=== PATIENT | male | born 1955 | race Caucasian/White ===

== ENCOUNTER 2016-06-20 10:29 | Outpatient (CLI) | payer OTHER ==
[2016-06-20] MEDS ORDERED: GADOBUTROL 7.5 MMOL/7.5 ML VIAL IVP ONE (11:28)
== END 2016-06-20 10:30 | disposition home or self-care (01) ==
DX: M51.17 Intervertebral disc disorders with radiculopathy, lumbosacral region (principal); M54.5 Low back pain
CPT/HCPCS: 72158; A9585

== ENCOUNTER 2018-04-04 11:01 | Outpatient (CLI) | payer OTHER ==
--- NOTE | 2018-04-07 10:07 | XRAY Report ---
Reason: BACK PAIN Procedure Date: 04/04/2018 Accession Number: [id number] / [id number] Procedure: XR - Lumbar Spine w/Flex/Ext CPT Code: FULL RESULT: EXAM: LUMBOSACRAL SPINE RADIOGRAPHY EXAM DATE: 04/04/2018 11:45 AM. CLINICAL HISTORY: BACK PAIN. COMPARISONS: Lumbar MRI 06/20/2016. TECHNIQUE: AP, lateral neutral, flexion, and extension views. FINDINGS: Alignment: No spondylolisthesis or scoliosis. No abnormal motion with flexion or extension. Bones: Five [id number] lumbar vertebral bodies are present. No fractures or bone lesions. Disks: There is mild narrowing of the L4-L5 disk space. Facets: No degenerative changes. Soft Tissues: The visualized bowel gas pattern is normal. IMPRESSION: Mild lumbar spondylosis. No appreciable change given differences in technique. RADIA
== END 2018-04-04 11:02 | disposition home or self-care (01) ==
LOC: DI 11:01
PROVIDERS: ATTEND Nurse Practitioner Family
DX: M47.9 Spondylosis, unspecified (principal)
CPT/HCPCS: 72114

== ENCOUNTER 2019-08-19 19:39 | Emergency (ER) | payer MEDICARE, OTHER ==
[2019-08-19 19:50] VITALS: BP 160/97
[2019-08-19] MEDS ORDERED: predniSONE 20 MG TABLET PO STA (20:02)
[2019-08-19] MEDS ORDERED: valACYclovir 500 MG TABLET PO STA (20:02)
--- NOTE | 2019-08-19 20:04 | ED Physician Documentation ---
History of Present Illness - Stated complaint Stated Complaint: LT SIDE CHEST PAIN - INJURY - Chief complaint Chief Complaint: General - History obtained from History obtained from: Patient (About 3 days has had a sharp and burning chest pain in the left anterior chest. It is worse with deep breathing and certain motions. It is minimally present at rest. He denies shortness of breath, calf pain, pedal edema. It is helpful for him to take a hot shower.) Review of Systems Constitutional: denies: Fever, Chills Throat: denies: Dental pain / toothache, Sore throat Cardiac: denies: Chest pain / pressure, Palpitations Respiratory: denies: Dyspnea, Cough PD PAST MEDICAL HISTORY - Present Medications Home Medications: Ambulatory Orders Medication Instructions Recorded Confirmed Valacyclovir HCl [Valtrex] 1,000 mg PO TID #30 tablet 08/19/19 predniSONE [Deltasone] 20 mg PO [id number] #21 tab 08/19/19 - Allergies Allergies/Adverse Reactions: Allergies Allergy/AdvReac Type Severity Reaction Status Date / Time No Known Drug Allergies Allergy Verified 08/19/19 19:54 PD ED PE NORMAL - Vitals Vital signs reviewed: Yes - General General: Alert and oriented X 3, No acute distress - HEENT HEENT: PERRL, EOMI - Neck Neck: Supple, no meningeal sign, No bony TTP - Cardiac Cardiac: RRR, No murmur, Other (He has herpes zoster in the affected area on the upper anterior thorax) - Respiratory Respiratory: Clear bilaterally - Abdomen Abdomen: Non tender - Extremities Extremities: No edema, No calf tenderness / cord - Neuro Neuro: Alert and oriented X 3, Normal speech Results - Vitals Vitals: Vital Signs - 24 hr 08/19/19 19:47 Temperature 36.9 C Heart Rate 88 Respiratory 16 Rate Blood Pressure 160/97 H O2 Saturation 96 Oxygen O2 Source Room air PD MEDICAL DECISION MAKING - ED course ED course: 63-year-old gentleman with chest pain but it is clearly due to herpes zoster on examination which is treated with Valtrex and a prednisone taper. Departure - Departure Disposition: 01 Home, Self Care Clinical Impression: Shingles Qualifiers: Herpes zoster complications: without complications Qualified Code(s): B02.9 - Zoster without complications Condition: Good Record reviewed to determine appropriate education?: Yes Instructions: ED Shingles Prescriptions: predniSONE [Deltasone] 20 mg PO [id number] #21 tab Valacyclovir HCl [Valtrex] 1,000 mg PO TID #30 tablet Comments: Return for new or worsening symptoms. Follow-up with your doctor midweek for recheck. Stay away from the high risk groups as discussed, specifically people with poor immune system, babies, women, Unimmunized people.
== END 2019-08-19 20:18 | disposition home or self-care (01) ==
LOC: ED 19:39
DX: B02.9 Zoster without complications (principal)
CPT/HCPCS: 99282; 99284; A9270; J7512

== ENCOUNTER 2021-07-22 08:00 | Outpatient (CLI) | payer MEDICARE ==
--- NOTE | 2021-07-22 09:40 | XRAY Report ---
PROCEDURE: Chest 2 View X-Ray INDICATIONS: Chest pain TECHNIQUE: 2 view(s) of the chest. COMPARISON: None. FINDINGS: Surgical changes and devices: None. Lungs and pleura: No pleural effusions or pneumothorax. Lungs are clear. Mediastinum: Mediastinal contours are normal. Heart size is normal. Bones and chest wall: No suspicious bony abnormalities. Soft tissues appear unremarkable. IMPRESSION: Normal Reviewed by: Luciano Vital MD on 07/22/2021 9:39 AM [facility] Approved by: Luciano Vital MD on 07/22/2021 9:39 AM [facility] Station ID: [id number]
[2021-07-22 15:03] LABS: ALBUMIN 3.8 g/dL (3.2-5.5); ALBUMIN/GLOBULIN RATIO 1.3 (1.0-2.2); BILIRUBIN,TOTAL 0.7 mg/dL (0.2-1.0); CALCIUM 9.1 mg/dL (8.5-10.3); CREATININE 0.9 mg/dL (0.6-1.2); POTASSIUM 4.4 mmol/L (3.5-5.0); TOTAL PROTEIN 6.7 g/dL (6.7-8.2)
[2021-07-22 15:09] LABS: THYROID STIMULATING HORMONE 1.71 uIU/mL (0.34-5.60)
[2021-07-22 15:11] LABS: BASOPHILS % (AUTO) 0.4 %; EOSINOPHILS # (AUTO) 0.1 10^3/uL (0.0-0.7); EOSINOPHILS % (AUTO) 1.2 %; HCT - HEMATOCRIT 37.8 % (42.0-52.0); HGB - HEMOGLOBIN 11.8 g/dL (14.0-18.0); LYMPHOCYTES # (AUTO) 1.7 10^3/uL (1.5-3.5); MEAN CORPUSCULAR HEMOGLOBIN 25.8 pg (27.0-31.0); MEAN CORPUSCULAR HGB CONC 31.2 g/dL (32.0-36.0); MEAN CORPUSCULAR VOLUME 82.5 fL (80.0-94.0); MEAN PLATELET VOLUME 9.2 fL (7.4-11.4); MONOCYTES # (AUTO) 0.4 10^3/uL (0.0-1.0); MONOCYTES % (AUTO) 6.1 %; NEUTROPHILS # (AUTO) 4.9 10^3/uL (1.5-6.6); PLT - PLATELET COUNT 375 10^3/uL (130-450); RED BLOOD COUNT 4.58 10^6/uL (4.70-6.10); RED CELL DISTRIBUTION WIDTH 15.9 % (12.0-15.0); WHITE BLOOD COUNT 7.2 x10^3/uL (4.8-10.8)
[2021-07-22 15:29] LABS: CREATINE KINASE MB 3.6 ng/mL (0.6-6.3)
== END 2021-07-22 23:59 | disposition home or self-care (01) ==
LOC: DI.S 08:00
PROVIDERS: ATTEND Registered Nurse
DX: R07.9 Chest pain, unspecified (principal)
CPT/HCPCS: 36415; 80053; 82553; 84443; 84484; 85025

== ENCOUNTER 2021-07-22 12:24 | Emergency (ER) | payer MEDICARE ==
[2021-07-22 13:06] LABS: BASOPHILS % (AUTO) 0.4 %; EOSINOPHILS % (AUTO) 0.5 %; HCT - HEMATOCRIT 39.9 % (42.0-52.0); HGB - HEMOGLOBIN 12.7 g/dL (14.0-18.0); LYMPHOCYTES # (AUTO) 2.4 10^3/uL (1.5-3.5); MEAN CORPUSCULAR HEMOGLOBIN 25.9 pg (27.0-31.0); MEAN CORPUSCULAR HGB CONC 31.8 g/dL (32.0-36.0); MEAN CORPUSCULAR VOLUME 81.3 fL (80.0-94.0); MEAN PLATELET VOLUME 8.5 fL (7.4-11.4); MONOCYTES # (AUTO) 0.6 10^3/uL (0.0-1.0); MONOCYTES % (AUTO) 7.3 %; NEUTROPHILS # (AUTO) 4.9 10^3/uL (1.5-6.6); NEUTROPHILS % (AUTO) 61.5 %; PLT - PLATELET COUNT 392 10^3/uL (130-450); RED BLOOD COUNT 4.91 10^6/uL (4.70-6.10); RED CELL DISTRIBUTION WIDTH 15.7 % (12.0-15.0)
[2021-07-22] MEDS ORDERED: MAG HYDROX/AL HYDROX/SIMETH 30 ML UDC PO STA (13:17)
[2021-07-22] MEDS ORDERED: SUCRALFATE 1 GM/10 ML UDC PO STA (13:17)
--- NOTE | 2021-07-22 13:18 | XRAY Report ---
PROCEDURE: Chest 1 View X-Ray INDICATIONS: Chest Pain TECHNIQUE: One view of the chest was acquired. COMPARISON: July 22, 2021 FINDINGS: SUPPORT DEVICES: None. LUNGS/PLEURA: No focal consolidation, pleural effusion or space-occupying pneumothorax. MEDIASTINUM: The cardiomediastinal silhouette is within normal limits. BONES/SOFT TISSUES: No acute abnormality. IMPRESSION: 1.No acute cardiopulmonary abnormality. Reviewed by: Kain Dalal MD on 07/22/2021 1:16 PM [facility] Approved by: Kain Dalal MD on 07/22/2021 1:16 PM [facility] Station ID: [id number]
--- NOTE | 2021-07-22 13:22 | ED Physician Documentation ---
PD HPI CHEST PAIN - Stated complaint Stated Complaint: CHEST PX - Chief complaint Chief Complaint: Cardiac - History obtained from History obtained from: Patient - History of Present Illness Timing - onset: Today Timing - onset during: Sleep Timing - duration: Hours (6 hours, constant) Pain level max: 7 Pain level now: 4 Quality: Indigestion, Other (burning) Location: Other (upper chest) Radiation: Other (non-radiating) Improved by: Nothing Worsened by: No: Exertion, Inspiration, Eating, Movement, Palpation, Position Associated symptoms: No: Shortness of air, Diaphoresis, Nausea, Vomiting, Feeling faint / dizzy, General Weakness, Palpitations, Cough Similar symptoms before: Has not had sx before - Additional information Additional information: took 324mg ASA this morning. Review of Systems Constitutional: denies: Fever, Chills PD PAST MEDICAL HISTORY - Past Medical History Past Medical History: Yes Cardiovascular: Hypertension Respiratory: None Neuro: None Endocrine/Autoimmune: None GI: GERD : None HEENT: None Psych: None Musculoskeletal: Osteoarthritis, Chronic back pain Derm: Other - Past Surgical History Past Surgical History: No Ortho: Spine surgery - Present Medications Home Medications: Ambulatory Orders Medication Instructions Recorded Confirmed Cholecalciferol [Vitamin D3] 50 mcg PO DAILY 07/22/21 07/22/21 Ibuprofen [Motrin] 1 tablet PO Q8H PRN 07/22/21 07/22/21 Omeprazole Magnesium 20 mg PO DAILY 07/22/21 07/22/21 Tumeric/Ging/[place]/Oreg/Capryl 1 each PO DAILY 07/22/21 07/22/21 [Candicidal Capsule] lisinopriL [Zestril] 5 mg PO DAILY 07/22/21 07/22/21 - Allergies Allergies/Adverse Reactions: Allergies Allergy/AdvReac Type Severity Reaction Status Date / Time No Known Drug Allergies Allergy Verified 07/22/21 12:37 - Social History Does the pt smoke?: No Smoking Status: Former smoker Does the pt drink ETOH?: No Does the pt have substance abuse?: No - Immunizations Immunizations are current?: Yes Immunizations: No immun PD ED PE NORMAL - Vitals Vital signs reviewed: Yes - General General: Alert and oriented X 3, No acute distress, Well developed/nourished - HEENT HEENT: PERRL, Moist mucous membranes - Neck Neck: Supple, no meningeal sign - Cardiac Cardiac: RRR, No murmur, Strong equal pulses - Respiratory Respiratory: No respiratory distress, Clear bilaterally - Abdomen Abdomen: Soft, Non tender, Non distended - Derm Derm: Warm and dry - Extremities Extremities: No edema, No calf tenderness / cord - Neuro Neuro: Alert and oriented X 3 - Psych Psych: Normal mood, Normal affect Results - Vitals Vitals: Vital Signs - 24 hr 07/22/21 07/22/21 07/22/21 12:37 13:39 14:30 Temperature 36.2 C L Heart Rate 62 67 61 Respiratory 18 16 14 Rate Blood Pressure 178/99 H 153/93 H 160/101 H O2 Saturation 98 99 97 07/22/21 07/22/21 07/22/21 16:17 18:00 20:00 Temperature Heart Rate 54 L 59 L 69 Respiratory 14 15 18 Rate Blood Pressure 133/89 H 145/93 H 152/94 H O2 Saturation 98 98 98 07/22/21 07/22/21 20:42 21:01 Temperature Heart Rate 72 78 Respiratory 18 13 Rate Blood Pressure 146/98 H 138/97 H O2 Saturation 99 96 Oxygen O2 Source Room air - EKG (time done) 1238 Rate: Rate (enter#) (57) Rhythm: NSR [place]: Normal Intervals: Normal [place] QRS: Normal Ischemia: ST depression (III, aVF) 1447 Rate: Rate (enter#) (65) Rhythm: NSR [place]: Normal Intervals: Normal [place] QRS: Normal Ischemia: ST depression (III, aVF) 2027 Rate: Rate (enter#) (67) Rhythm: NSR [place]: Normal Intervals: Normal [place] QRS: Normal Ischemia: T wave inversion (v2-5, I, aVL) 8 Rate: Rate (enter#) (77) Rhythm: NSR [place]: Normal QRS: Normal Ischemia: ST elevation c/w ischemia (I, aVL, V2-5), ST depression (III,aVL) - Labs Labs: Laboratory Tests 07/22/21 07/22/21 07/22/21 12:59 12:59 12:59 WBC 8.0 RBC 4.91 Hgb 12.7 L Hct 39.9 L MCV 81.3 MCH 25.9 L MCHC 31.8 L RDW 15.7 H Plt Count 392 MPV 8.5 Neut # (Auto) 4.9 Lymph # (Auto) 2.4 [place] # (Auto) 0.6 Eos # (Auto) 0.0 Baso # (Auto) 0.0 Absolute Nucleated RBC 0.00 Nucleated RBC % 0.0 PT INR APTT Sodium 133 L Potassium 4.3 Chloride 99 L Carbon Dioxide 24 Anion Gap 10.0 BUN 17 Creatinine 0.9 Estimated GFR (MDRD) 85 L Glucose 127 H Calcium 9.3 Total Bilirubin 0.5 AST 41 ALT 42 Alkaline Phosphatase 73 Troponin I High Sens 915.7 H* Total Protein 7.5 Albumin 4.2 Globulin 3.3 Albumin/Globulin Ratio 1.3 Lipase 60 H Nasal Adenovirus (PCR) Nasal B. parapertussis DNA (PCR) Nasal Coronavir 229E PCR Nasal Coronavir HKU1 PCR Nasal Coronavir NL63 PCR Nasal Coronavir OC43 PCR Nasal Enterovir/Rhinovir PCR Nasal Influenza B PCR Nasal Influenza A PCR Nasal Parainfluen 1 PCR Nasal Parainfluen 2 PCR Nasal Parainfluen 3 PCR Nasal Parainfluen 4 PCR Nasal RSV (PCR) Nasal B.pertussis DNA PCR Nasal C.pneumoniae (PCR) Reg[place] Human Metapneumo PCR Nasal M.pneumoniae (PCR) Nasal SARS-CoV-2 (PCR) 07/22/21 07/22/21 07/22/21 13:58 14:21 19:22 WBC RBC Hgb Hct MCV MCH MCHC RDW Plt Count MPV Neut # (Auto) Lymph # (Auto) [place] # (Auto) Eos # (Auto) Baso # (Auto) Absolute Nucleated RBC Nucleated RBC % PT 12.3 INR 1.1 APTT > 240.0 H* 53.0 H Sodium Potassium Chloride Carbon Dioxide Anion Gap BUN Creatinine Estimated GFR (MDRD) Glucose Calcium Total Bilirubin AST ALT Alkaline Phosphatase Troponin I High Sens Total Protein Albumin Globulin Albumin/Globulin Ratio Lipase Nasal Adenovirus (PCR) NOT DETECTED Nasal B. parapertussis DNA (PCR) NOT DETECTED Nasal Coronavir 229E PCR NOT DETECTED Nasal Coronavir HKU1 PCR NOT DETECTED Nasal Coronavir NL63 PCR NOT DETECTED Nasal Coronavir OC43 PCR NOT DETECTED Nasal Enterovir/Rhinovir PCR NOT DETECTED Nasal Influenza B PCR NOT DETECTED Nasal Influenza A PCR NOT DETECTED Nasal Parainfluen 1 PCR NOT DETECTED Nasal Parainfluen 2 PCR NOT DETECTED Nasal Parainfluen 3 PCR NOT DETECTED Nasal Parainfluen 4 PCR NOT DETECTED Nasal RSV (PCR) NOT DETECTED Nasal B.pertussis DNA PCR NOT DETECTED Nasal C.pneumoniae (PCR) NOT DETECTED Reginald Human Metapneumo PCR NOT DETECTED Nasal M.pneumoniae (PCR) NOT DETECTED Nasal SARS-CoV-2 (PCR) NOT DETECTED 07/22/21 19:22 WBC RBC Hgb Hct MCV MCH MCHC RDW Plt Count MPV Neut # (Auto) Lymph # (Auto) [place] # (Auto) Eos # (Auto) Baso # (Auto) Absolute Nucleated RBC Nucleated RBC % PT INR APTT Sodium Potassium Chloride Carbon Dioxide Anion Gap BUN Creatinine Estimated GFR (MDRD) Glucose Calcium Total Bilirubin AST ALT Alkaline Phosphatase Troponin I High Sens 5345.2 H* Total Protein Albumin Globulin Albumin/Globulin Ratio Lipase Nasal Adenovirus (PCR) Nasal B. parapertussis DNA (PCR) Nasal Coronavir 229E PCR Nasal Coronavir HKU1 PCR Nasal Coronavir NL63 PCR Nasal Coronavir OC43 PCR Nasal Enterovir/Rhinovir PCR Nasal Influenza B PCR Nasal Influenza A PCR Nasal Parainfluen 1 PCR Nasal Parainfluen 2 PCR Nasal Parainfluen 3 PCR Nasal Parainfluen 4 PCR Nasal RSV (PCR) Nasal B.pertussis DNA PCR Nasal C.pneumoniae (PCR) Reg[place]d Human Metapneumo PCR Nasal M.pneumoniae (PCR) Nasal SARS-CoV-2 (PCR) - Rads (name of study) cxr Radiology: Final report received, EMP read contemporaneously, See rad report (no acute disease) PD MEDICAL DECISION MAKING - ED course Complexity details: reviewed results, re-evaluated patient, considered differential, d/w patient, d/w solar sales consultant ED course: Discussed the case with Dr. Mccullough at the [facility] around 2:30 in the afternoon. Patient is pain-free. Asymptomatic. On a heparin drip. Given oral metoprolol. Took aspirin prior to arrival. There are no beds available at [facility] or [facility]. [facility], Dr. Mccullough accepts in transfer. [facility] called back a few hours later and states that the bed will likely not be available till tomorrow. Patient is still hemodynamically stable and pain- free. At approximately 8 PM, the patient developed recurrent chest pain. EKG performed and does show dynamic changes though no ST elevation [place] at that time. Recontacted [facility], refax the EKG and attempted talk to the massage therapy instructor. No callback received. At approximately 2119, the patient had an episode of torsades. He was electrically cardioverted x1. His rhythm normal ized. Magnesium given. Repeat EKG now does show a STEMI. Plavix was given. Heparin drip continued. Discussed the case with Dr. Weeks at [facility]. He graciously accepts in transfer. Patient will travel via [employer]. Patient is currently hemodynamically stable and currently pain- free. He states that he felt like there was an elephant on his chest just prior to the torsades. COBRA forms completed. The cardioversion with the torsades was performed by my partner, Dr. Castro as she was at the room at the time of the event. I was in another patient's room, the patient had stabilized when I was notified of the event. Departure - Departure Disposition: 02 Transfer Acute Care Hosp Clinical Impression: NSTEMI (non-ST elevated myocardial infarction), Torsades de pointes STEMI (ST elevation myocardial infarction) Qualifiers: Involved coronary artery: unspecified coronary artery Qualified Code(s): I21.3 - ST elevation (STEMI) myocardial infarction of unspecified site Condition: Stable
[2021-07-22] MEDS ORDERED: MORPHINE 2 MG/ML CARPUJECT IVP STA ×2 (13:53→19:13)
[2021-07-22] MEDS ORDERED: METOPROLOL TARTRATE 50 MG TABLET PO STA (13:53)
[2021-07-22] MEDS ORDERED: HEPARIN 25000UNITS/500ML (D5W) 25,000 UNIT/500 ML BAG IV SCH (14:00)
[2021-07-22 14:01] LABS: ALBUMIN 4.2 g/dL (3.2-5.5); ALBUMIN/GLOBULIN RATIO 1.3 (1.0-2.2); BILIRUBIN,TOTAL 0.5 mg/dL (0.2-1.0); CREATININE 0.9 mg/dL (0.6-1.2); TOTAL PROTEIN 7.5 g/dL (6.7-8.2)
[2021-07-22 14:02] LABS: CALCIUM 9.3 mg/dL (8.5-10.3); POTASSIUM 4.3 mmol/L (3.5-5.0)
[2021-07-22 14:32] LABS: INR 1.1 (0.8-1.2); PT - PROTHROMBIN TIME 12.3 secs (9.9-12.6)
[2021-07-22 14:54] LABS: PARTIAL THROMBOPLASTIN TIME > 240.0 secs (24.9-33.3)
[2021-07-22 15:49] LABS: B. PARAPERTUSSIS- RESP PCR PAN NOT DETECTED; B. PERTUSSIS- RESP PCR PANEL NOT DETECTED; C. PNEUMONIAE- RESP PCR PANEL NOT DETECTED; CORONAVIRUS 229E-RESP PCR NOT DETECTED; CORONAVIRUS HKU1-RESP PCR NOT DETECTED; CORONAVIRUS NL63-RESP PCR NOT DETECTED; CORONAVIRUS OC43-RESP PCR NOT DETECTED; HUMAN METAPNEUMOVIRUS NOT DETECTED; INFLUENZA A- RESP PCR PANEL NOT DETECTED; INFLUENZA B - RESP PCR PANEL NOT DETECTED; M. PNEUMONIAE- RESP PCR PANEL NOT DETECTED; PARAINFLUENZA VIRUS 1 NOT DETECTED; PARAINFLUENZA VIRUS 2 NOT DETECTED; PARAINFLUENZA VIRUS 3 NOT DETECTED; PARAINFLUENZA VIRUS 4 NOT DETECTED; RHINOVIRUS/ENTEROVIRUS NOT DETECTED; RSV- RESP PCR PANEL NOT DETECTED; SARS-CoV-2 -RESP PCR PANEL NOT DETECTED
[2021-07-22] MEDS ORDERED: NITROGLYCERIN SL 0.4 MG TABLET SL STA (20:51)
[2021-07-22 21:02] VITALS: BP 138/97
[2021-07-22] MEDS ORDERED: CLOPIDOGREL 300 MG TABLET PO STA (21:33)
[2021-07-22] MEDS ORDERED: MAGNESIUM SULFATE 2 GRAM 2 GM/50 ML BAG IV ONE (21:34)
== END 2021-07-22 22:11 | disposition short-term general hospital (02) ==
LOC: ED 12:24
DX: I21.4 Non-ST elevation (NSTEMI) myocardial infarction (principal); I47.2 Ventricular tachycardia; I10 Essential (primary) hypertension; Z87.891 Personal history of nicotine dependence
CPT/HCPCS: 36415; 71045; 80053; 83690; 84484; 85025; 85610; 85730; 87631; 93005; 96365; 96366; 96375; 96376; 99283; 99285; A9270; 0202U

== ENCOUNTER 2023-01-30 08:00 | Outpatient (CLI) | payer MEDICARE ==
--- NOTE | 2023-01-30 13:03 | XRAY Report ---
PROCEDURE: Chest 2 View X-Ray INDICATIONS: PERSISTENT COUGH AFTER VIRAL RESPIRATORY INFECTION TECHNIQUE: 2 views of the chest were acquired. COMPARISON: None. FINDINGS: Surgical changes and devices: None. Lungs and pleura: No pleural effusions or pneumothorax. Lungs are clear. Mediastinum: Mediastinal contours appear normal. Heart size is normal. Dense coronary artery vasc ular calcification present. Atherosclerotic vascular calcification noted in the aortic arch. Bones and chest wall: No suspicious bony lesions. Overlying soft tissues appear unremarkable. IMPRESSION: No acute cardiopulmonary process. Reviewed by: Adrian Glass MD on 01/30/2023 12:02 PM [facility] Approved by: Adrian Glass MD on 01/30/2023 12:02 PM [facility] Station ID: [id number]
== END 2023-01-30 23:59 | disposition home or self-care (01) ==
LOC: DI.S 08:00
PROVIDERS: ATTEND Physician Assistant Medical
DX: R05.3 Chronic cough (principal)

== ENCOUNTER 2024-02-01 07:55 | Outpatient (CLI) | payer MEDICARE ==
--- NOTE | 2024-02-01 13:03 | CT Report ---
PROCEDURE: Lung Cancer Screen INDICATIONS: SCREENING FOR LUNG CA TECHNIQUE: A CT scan of the chest was performed. Intravenous contrast media was not administered. Images were re corded and evaluated at appropriate window settings. Reformats: axial MIP of the chest, coronal and s agittal. For radiation dose reduction, the following was used: automated exposure control, adjustment of mA and/or kV according to patient size. COMPARISON: None. FINDINGS: Image quality: Excellent. Prior cancer history: Unsure. Lungs and pleura: No pleural effusions. No pneumothorax. No suspicious pulmonary nodules which requi re follow up. 2 mm calcific granuloma in the left lower lobe. Mediastinum: Heart size is normal. No pericardial effusion. No large vessel abnormality. No mediastin al adenopathy by size criteria. Three vessel coronary artery calcifications. Chest wall and lower neck: Thyroid is unremarkable. No axillary or supraclavicular adenopathy by size . Bones: No aggressive osseous abnormality. Upper Abdomen: Unremarkable. IMPRESSION: Lung RAD: 1 - Negative. Recommendation: Continue annual screening in 12 Months with LDCT Non-Lung Significant Findings: Coronary Arterial Calcification - Moderate or Severe. Consider cardiol ogy referral. Reviewed by: Erik Zapata MD on 02/01/2024 1:02 PM PDT Approved by: Erik Zapata MD on 02/01/2024 1:02 PM PDT Station ID: [id number]
--- NOTE | 2024-02-01 15:50 | Ultrasound Report ---
PROCEDURE: Aorta Screening INDICATIONS: AAA SCREENING TECHNIQUE: Real time scanning was performed of the aorta and iliac arteries, with image documentatio n. COMPARISON: None. FINDINGS: Aorta: Proximal aortic diameter measures 2.5 x 2.9 cm. Mid-aorta measures 2.0 x 1.9 cm. Distal aor tic diameter is 1.4 x 1.5 cm. Iliac arteries: Right common iliac artery measures 1.0 x 1.0 cm. Left common iliac artery measures 1.0 x 1.0 cm. IMPRESSION: Unremarkable abdominal aortic ultrasound. No aneurysm Recommended intervals for follow-up imaging of ectatic aortas and abdominal aortic aneurysms, per ACR consensus guidelines: 2.5-2.9 cm: 5 years 3.0-3.4 cm: 3 years 3.5-3.9 cm: 2 years 4.0-4.4 cm: 1 year 4.5-4.9 cm: 6 months + endovascular referral 5.0-5.5 cm: 3-6 months + endovascular referral Reviewed by: Adrian Glass MD on 02/01/2024 2:48 PM [facility] Approved by: Adrian Glass MD on 02/01/2024 2:48 PM [facility] Station ID: [id number]
== END 2024-02-01 07:56 | disposition home or self-care (01) ==
LOC: DI 07:55
PROVIDERS: ATTEND Nurse Practitioner Family
DX: Z12.2 Encounter for screening for malignant neoplasm of respiratory organs (principal); Z13.6 Encounter for screening for cardiovascular disorders; I25.10 Atherosclerotic heart disease of native coronary artery without angina pectoris; Z87.891 Personal history of nicotine dependence